=== PATIENT | male | born 1945 | race Caucasian/White ===

== ENCOUNTER 2017-09-27 12:20 | Emergency (ER) | payer OTHER ==
--- NOTE | 2017-09-27 13:41 | RAD REPORT ---
EXAM DESCRIPTION: US - Urinary Bladder - 09/27/2017 1:24 pm CLINICAL HISTORY: ABD PAIN COMPARISON: No comparisons TECHNIQUE: Real-time sonography of the urinary bladder was performed. FINDINGS: Ramirez catheter bulb is seen within the urinary bladder. No bladder mass identified. A ston e with debris may be present in the urinary bladder. Bladder volume is 36 mL. The kidneys were not sonographically imaged. IMPRESSION: A Ramirez catheter bulb is within the urinary bladder.
[2017-09-27 13:49] LABS: Absolute Lymphocytes (CBC) 1.9 K/uL (0.7-4.9); Absolute Neutrophil 9.9 K/uL (1.8-8.0); Basophils % 0.7 % (0-1.3); Eosinophils % 1.8 % (0-4.4); Hematocrit 43.3 % (39.6-49.0); Lymphocytes % 14.5 % (15.3-44.8); MCH 29.8 pg (27.0-35.0); MCV 92.2 fL (80-100); MPV 8.6 fL (7.6-11.3); Monocytes % 7.7 % (3.3-12.3)
[2017-09-27] MEDS ORDERED: CEFTRIAXONE/SWI 1gm 1 GM/10 ML SYR ONE (14:08)
[2017-09-27 14:09] LABS: ALT/SGPT 44 U/L (12-78); AST/SGOT 39 U/L (15-37); Albumin 3.1 g/dL (3.4-5.0); Alkaline Phosphatase 82 U/L (45-117); BUN Blood Urea Nitrogen 20 mg/dL (7-18); Bicarbonate 28 mmol/L (21-32); Bilirubin Total 0.5 mg/dL (0.2-1.0); Glucose Level 89 mg/dL (74-106); Potassium 3.8 mmol/L (3.5-5.1); Protein, Total 7.5 g/dL (6.4-8.2); Sodium Level 140 mmol/L (136-145)
[2017-09-27] MEDS ORDERED: NA CHLORIDE 0.9% 500 ML ONE (15:11)
--- NOTE | 2017-09-27 15:24 | ER ---
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 Nurse cut and clamped catheter in place. Transition of care: patient was not received from another setting of care. Onset of symptoms was September 27, 2017. Risk Assessment: Do you want to hurt yourself or someone else? Patient reports no desire to harm self or others. Initial Sepsis Screen: Does the patient meet any 2 criteria? No. Patient's initial sepsis screen is negative. Does the patient have a suspected source of infection? No. Patient's initial sepsis screen is negative. Care prior to arrival: None. 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 - Social history:: Smoking status: Patient/guardian denies using tobacco. - Ebola Screening: : No symptoms or risks identified at this time. - Family history:: not pertinent. Screenin:43 Abuse screen: Denies threats or abuse. Denies injuries from another. Nutritional hb screening: No deficits noted. Tuberculosis screening: No symptoms or risk factors identified. Fall Risk Total Dent Fall Scale indicates Low Risk Score (25-44 pts). Fall prevention measures have been instituted. Side Rails Up X 2 Frequent Obs/Assesments occuring Family Present and informed to notify staff if they need to leave bedside As available Patient and Family Educated on Fall Prevention Program and strategies. Assessment: 12:30 General: Appears in no apparent distress. Behavior is calm, cooperative. Pain: Denies hb pain. Neuro: Level of Consciousness is obeys commands, lethargic, Oriented to person, place, time, situation. Cardiovascular: Capillary refill < 3 seconds Patient's skin is warm and dry. Respiratory: Airway is patent Trachea midline Respiratory effort is even, unlabored, Respiratory pattern is regular, symmetrical, Breath sounds are clear bilaterally. GI: No signs and/or symptoms were reported involving the gastrointestinal system. : catheter in place, ballon port has been cut. No urine noted from catheter. EENT: No signs and/or symptoms were reported regarding the EENT system. Derm: Skin is intact, is healthy with good turgor, Skin is pink, warm \T\ dry. Musculoskeletal: No signs and/or symptoms reported regarding the musculoskeletal system. 13:15 Reassessment: Patient appears in no apparent distress at this time. No changes from hb previously documented assessment. Patient and/or family updated on plan of care and expected duration. Pain level reassessed. 14:05 Reassessment: Dr. Singh at bedside for catheter removal. hb 14:30 Reassessment: Dr. Singh unable to remove catheter, pt tolerated fair. hb 14:56 Reassessment: Dr. Singh at bedside to attempt catheter removal. hb 15:30 Reassessment: Patient appears in no apparent distress at this time. No changes from hb previously documented assessment. Patient and/or family updated on plan of care and expected duration. Pain level reassessed. 16:30 Reassessment: Patient appears in no apparent distress at this time. No changes from hb previously documented assessment. Patient and/or family updated on plan of care and expected duration. Pain level reassessed. 16:41 Reassessment: Report called to RIO Jones at [facility]. hb 17:30 Reassessment: Patient appears in no apparent distress at this time. No changes from hb previously documented assessment. Patient and/or family updated on plan of care and expected duration. Pain level reassessed. Vital Signs: 12:26 BP 118 / 86; Pulse 73; Resp 15; Temp 98; Pulse Ox 98% on R/A; hb 13:30 BP 120 / 82; Pulse 85; Resp 16; Pulse Ox 100% on R/A; hb 14:30 BP 122 / 84; Pulse 80; Resp 15; Pulse Ox 100% on R/A; hb 15:21 BP 123 / 81; Pulse 81; Resp 17; Pulse Ox 100% on R/A; hb 16:30 BP 104 / 66; Pulse 68; Resp 15; Temp 98; Pulse Ox 100% on R/A; hb 17:30 BP 106 / 72; Pulse 66; Resp 16; Pulse Ox 100% on R/A; hb ED Course: 12:21 Patient arrived in ED. hb 12:25 Triage completed. hb 12:27 Arm band placed on right wrist. hb 12:29 Jason Singh MD is Attending Physician. aisha 13:00 Patient has correct armband on for positive identification. Bed in low position. Call hb light in reach. Side rails up X2. Adult w/ patient. 13:00 Inserted saline lock: 22 gauge in left forearm, using aseptic technique. hb 13:24 Urinary Bladder In Process Unspecified. EDWY 13:24 Antonette Chaudhari, RN is Primary Nurse. hb 13:24 Ultrasound completed. Patient tolerated well. aa4 13:33 Patient moved back from ultrasound. lc3 17:40 No provider procedures requiring assistance completed. Patient transferred, IV remains hb in place. Administered Medications: 14:00 Drug: Rocephin - (cefTRIAXone) 1 grams Route: IVPB; Infused Over: 30 mins; Site: left hb forearm; 14:30 Follow up: Response: No adverse reaction; IV Status: Completed infusion hb 14:12 Drug: NS 0.9% 1000 ml Route: IV; Rate: 75 ml/hr; Site: left forearm; hb 15:20 Drug: NS 0.9% 500 ml Route: IV; Rate: bolus; Site: left forearm; hb 16:10 Follow up: Response: No adverse reaction; IV Status: Completed infusion hb Outcome: 15:23 ER care complete, transfer ordered by . aisha 17:40 Transferred by ground EMS to [facility]. hb 17:40 Condition: stable 17:40 Instructed on the need for transfer, Demonstrated understanding of instructions. 18:16 Patient left the ED. hb Signatures: Dispatcher [employer] EDMS Jason Singh MD MD cha Frazier, Amanda aa4 Veda Jc lc3 Antonette Chaudhari, RN RN hb
--- NOTE | 2017-09-27 15:24 | EDPHYS ---
Physician Documentation [facility] Name: Shaun Shi Age: 72 yrs Sex: Male : 1945 Arrival Date: 09/27/2017 Time: 12:21 Bed 26 Private MD: ED Physician Jason Singh HPI: 09/27 13:08 This 72 yrs old Male presents to ER via EMS with complaints of Problem With aisha Urinary Catheter. 13:08 This 72 yrs old Male presents to ER via EMS with complaints of Problem With aisha Urinary Catheter. 13:08 The patient presents with urinary symptoms, bowers blocked, cannot removed. Onset: The aisha symptoms/episode began/occurred just prior to arrival. Modifying factors: The symptoms are alleviated by nothing, the symptoms are aggravated by nothing. Associated signs and symptoms: The patient has no apparent associated signs or symptoms. Severity of symptoms: At their worst the symptoms were mild, in the emergency department the symptoms are unchanged. The patient has not experienced similar symptoms in the past. 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 - Social history:: Smoking status: Patient/guardian denies using tobacco. - Ebola Screening: : No symptoms or risks identified at this time. - Family history:: not pertinent. ROS: 13:08 Constitutional: Negative for fever, chills, and weight loss, Eyes: Negative for injury, aisha pain, redness, and discharge, ENT: Negative for injury, pain, and discharge, Neck: Negative for injury, pain, and swelling, Cardiovascular: Negative for chest pain, palpitations, and edema, Respiratory: Negative for shortness of breath, cough, wheezing, and pleuritic chest pain, Back: Negative for injury and pain, MS/Extremity: Negative for injury and deformity, Skin: Negative for injury, rash, and discoloration, Neuro: Negative for headache, weakness, numbness, tingling, and seizure, Psych: Negative for depression, anxiety, suicide ideation, homicidal ideation, and hallucinations, Allergy/Immunology: Negative for hives, rash, and allergies, Endocrine: Negative for neck swelling, polydipsia, polyuria, polyphagia, and marked weight changes, Hematologic/Lymphatic: Negative for swollen nodes, abnormal bleeding, and unusual bruising. 13:08 Abdomen/GI: Positive for of the left lower quadrant. 13:08 : Positive for penile pain, bowers stuck on urether. Exam: 13:08 Constitutional: This is a well developed, well nourished patient who is awake, alert, aisha and in no acute distress. Head/Face: Normocephalic, atraumatic. Eyes: Pupils equal round and reactive to light, extra-ocular motions intact. Lids and lashes normal. Conjunctiva and sclera are non-icteric and not injected. Cornea within normal limits. Periorbital areas with no swelling, redness, or edema. ENT: Nares patent. No nasal discharge, no septal abnormalities noted. Tympanic membranes are normal and external auditory canals are clear. Oropharynx with no redness, swelling, or masses, exudates, or evidence of obstruction, uvula midline. Mucous membranes moist. Neck: Trachea midline, no thyromegaly or masses palpated, and no cervical lymphadenopathy. Supple, full range of motion without nuchal rigidity, or vertebral point tenderness. No Meningismus. Chest/axilla: Normal chest wall appearance and motion. Nontender with no deformity. No lesions are appreciated. Cardiovascular: Regular rate and rhythm with a normal S1 and S2. No gallops, murmurs, or rubs. Normal PMI, no JVD. No pulse deficits. Respiratory: Lungs have equal breath sounds bilaterally, clear to auscultation and percussion. No rales, rhonchi or wheezes noted. No increased work of breathing, no retractions or nasal flaring. Back: No spinal tenderness. No costovertebral tenderness. Full range of motion. Skin: Warm, dry with normal turgor. Normal color with no rashes, no lesions, and no evidence of cellulitis. MS/ Extremity: Pulses equal, no cyanosis. Neurovascular intact. Full, normal range of motion. Neuro: Awake and alert, GCS 15, oriented to person, place, time, and situation. Cranial nerves II-XII grossly intact. Motor strength 5/5 in all extremities. Sensory grossly intact. Cerebellar exam normal. Normal gait. Psych: Awake, alert, with orientation to person, place and time. Behavior, mood, and affect are within normal limits. 13:08 Abdomen/GI: Inspection: abdomen appears normal, Bowel sounds: normal, Liver: no appreciated palpable abnormalities, Hernia: not appreciated. Vital Signs: 12:26 BP 118 / 86; Pulse 73; Resp 15; Temp 98; Pulse Ox 98% on R/A; hb 13:30 BP 120 / 82; Pulse 85; Resp 16; Pulse Ox 100% on R/A; hb 14:30 BP 122 / 84; Pulse 80; Resp 15; Pulse Ox 100% on R/A; hb 15:21 BP 123 / 81; Pulse 81; Resp 17; Pulse Ox 100% on R/A; hb 16:30 BP 104 / 66; Pulse 68; Resp 15; Temp 98; Pulse Ox 100% on R/A; hb 17:30 BP 106 / 72; Pulse 66; Resp 16; Pulse Ox 100% on R/A; hb MDM: 12:29 Patient medically screened. [facility] 13:08 Data reviewed: vital signs, nurses notes, lab test result(s), radiologic studies, aisha ultrasound. 09/27 13:08 Order name: CBC with Diff; Complete Time: 15:19 [facility] 09/27 13:08 Order name: Comprehensive Metabolic Panel; Complete Time: 15:19 [facility] 09/27 13:17 Order name: Urinary Bladder; Complete Time: 15:19 EDMS Administered Medications: 14:00 Drug: Rocephin - (cefTRIAXone) 1 grams Route: IVPB; Infused Over: 30 mins; Site: left hb forearm; 14:30 Follow up: Response: No adverse reaction; IV Status: Completed infusion hb 14:12 Drug: NS 0.9% 1000 ml Route: IV; Rate: 75 ml/hr; Site: left forearm; hb 15:20 Drug: NS 0.9% 500 ml Route: IV; Rate: bolus; Site: left forearm; hb 16:10 Follow up: Response: No adverse reaction; IV Status: Completed infusion Disposition: 09/27/17 15:23 Transfer ordered to [facility]. Diagnosis are Bladder disorder, unspecified - bowers catherter dysfunctional and not able to be removed, Hematuria. - Reason for transfer: Higher level of care. - Accepting physician is TO [facility], UROLOGY. - Condition is Stable. - Problem is new. - Symptoms have improved. Signatures: Dispatcher [employer] EDSC Jason Singh MD MD cha Baxter, Heather, RN RN hb Corrections: (The following items were deleted from the chart) 13:17 13:08 Abdomen Limited+[id number] ordered. [facility] 18:16 15:23 09/27/2017 15:23 Transfer ordered to [facility]. Diagnosis is hb Bladder disorder, unspecified - bowers catherter dysfunctional and not able to be removed; Hematuria. Reason for transfer: Higher level of care. Accepting physician is TO [facility], UROLOGY. Condition is Stable. Problem is new. Symptoms have improved. aisha
[2017-09-27] MEDS ORDERED: NA CHLORIDE 0.9% 1,000 ML ONE (16:14)
[2017-09-27 18:20] VITALS: TEMP 98
[2017-09-27 18:21] VITALS: O2SAT 100
[2017-09-27 18:25] VITALS: BP 106/72
== END 2017-09-27 18:16 | disposition short-term general hospital (02) ==
LOC: ER 12:20
DX: T83.091A Other mechanical complication of indwelling urethral catheter, initial encounter (principal); Y84.6 Urinary catheterization as the cause of abnormal reaction of the patient, or of later complication, without mention of misadventure at the time of the procedure; Y92.019 Unspecified place in single-family (private) house as the place of occurrence of the external cause; R31.9 Hematuria, unspecified; Z88.1 Allergy status to other antibiotic agents; N32.9 Bladder disorder, unspecified
CPT/HCPCS: 36415; 76857; 80053; 85025; 96361; 96365; 99285; J0696; J7030